=== PATIENT | female | born 1975 | race Caucasian/White ===

== ENCOUNTER 2017-07-10 18:24 | Emergency (ER) | payer MEDICAID ==
[~2017-07-10] VITALS: Ht 157.5 cm; Wt 93.0 kg
[~2017-07-10 18:24] MED LIST: ALBUTEROL-200 PUFFS/ IH; ANTIVERT GENERI25 MG PO; CIPRO 500MG TA500 MG PO; HYDROCHLOROTHIA25 M1 OR; HYDROCHLOROTHIA25 M1 PO; KEFLEX 500MG.500 MG PO; LISINOPRIL-HCTZ 20-2 PO; LISINOPRIL2.5 M1 PO; LOPRESSOR 25MG.25 MG PO; MEDROL 4MG. DOSE4 MG PO; PHENERGAN 25MG.25 M1 PO; PREDNISONE20 MG PO; TAMIFLU75 MG PO; TESSALON PERLE100 MG PO; VICODIN 5/500 T1 TAB PO; ZITHROMAX Z PA250 MG PO
--- OUTSIDE RECORDS SUMMARY | 2017-07-10 18:35 | External Medical Summary Rpt | CCD ---
Author Author STEPHANIE Address Unknown Phone Purpose Continuity of Care Document - through 2016
--- OUTSIDE RECORDS SUMMARY | 2017-07-10 18:35 | External Medical Summary Rpt | CCD ---
Author Author STEPHANIE Address Unknown Phone [email or web address] Purpose Continuity of Care Document - through 2016
--- OUTSIDE RECORDS SUMMARY | 2017-07-10 18:35 | External Medical Summary Rpt | CCD ---
Author Author [employer] Organization [employer] Address Unknown Phone Unavailable Purpose Continuity of Care Document - through 2016
--- OUTSIDE RECORDS SUMMARY | 2017-07-10 18:36 | External Medical Summary Rpt | CCD ---
Demographics Preferred Language Peruvian Marital Status Unknown Episcopalian Affiliation Unknown Race Unknown Ethnic Group Unknown Author Author , STEPHANIE WILEY Address Unknown Phone Immunization No patient found.
--- OUTSIDE RECORDS SUMMARY | 2017-07-10 18:36 | External Medical Summary Rpt ---
Author Author [facility] [place], [employer] Organization [employer] Address Unknown Phone Unavailable
--- OUTSIDE RECORDS SUMMARY | 2017-07-10 18:36 | External Medical Summary Rpt | CCD ---
Demographics Preferred Language Zambian Marital Status Unknown Yazidi Affiliation Unknown Race Unknown Ethnic Group Unknown Author Author , STEPHANIE WILEY Address Unknown Phone Immunization No patient found.
[2017-07-10 19:30] VITALS: BP 178/98
[2017-07-10] MEDS ORDERED: MEDROL 4MG. DOSE4 MG PO (19:30)
[2017-07-10] MEDS ORDERED: ZITHROMAX Z PA250 MG PO (19:30)
[2017-07-10] MEDS ORDERED: TESSALON PERLE100 M1 PO (19:30)
[2017-07-10] MEDS ORDERED: FLONASE 50 MCG16 GM (19:30)
--- NOTE | 2017-07-10 19:30 | Urgent Treatment Center Report ---
History of Present Issue Date/Time Seen by Provider 07/10/171920 Visit Reason Pt arrived:Walked Presenting Problem:PT C/O COUGH, CONGESTION Location if Accident: Onset of symptoms date/time:/ or onset unknown for:MEDICAL HX UNKNOWN Have you (or family members/close friends) recently traveled outside the [place]? N If Yes, where/when: Have you had exposure to infectious disease within the past month? TB? Other? Specify: Patient state that she feels like she has a sinus infection or something, State that she has been having sore throat, cough and congestion State that she has continued to get worse as the day went on State that she went to [facility] and her blood pressure was up and they sent her up here States that she is on blood pressure medication and when she is sick her blood pressure is oftne up ALLERGIES Coded Allergies: [place] Pepper (From PEPPERS (FOOD/DRUG)) (I-RASH, BANANA PEPPERS 03/10/16) Penicillins (S-ANAPHYLAXIS 03/10/16) oxycodone (I-ITCHING 03/10/16) pepper (From PEPPERS (FOOD/DRUG)) (I-RASH, BANANA PEPPERS 03/10/16) Home Medications Reported Medications Metoprolol Tartrate (Lopressor) 25 MG PO BID #60 TAB Lisinopril 2.5 MG PO DAILY #30 HYDROCHLOROTHIAZIDE (Hydrochlorothiazide) 25 MG PO DAILY #30 History Medical History General CAD? No Angina: Yes CA: No Hypertension? Yes Hyperlipidemia? No CHF? No DVT? No PE? No COPD? Yes Asthma? Yes Anemia? No GERD? No Gastric ulcers? No GI Bleed? No Hernia? No Thyroid Problems? No Hypothyroidism? No CVA? Yes Seizures? No Diabetes? No Renal Insuffiency? No UTI? Yes Stones? No BPH? No GB Disease: No Nephritic Syndrome? No Asplenia? No Hepatitis? No Sickle Cell Disease? No Arthritis? No Migraines? No Cataracts? No Glaucoma? No MRSA? No HIV? No TB? No Anxiety? No Depression? No Cancer? Yes Site: CERVIX More? No Immunization HX DT/Tetanus 1-4 YRS Flu NEVER Pneumonia NEVER Surgical Hx Previous Surgery?Y CERVIX-LASER TUBAL LIGATION LT HAND SURGERY-IMPALED LAPROSCOPY D&C Family History Family HX Diabetes Yes CAD Yes Hypertension Yes Hyperlipidemia Yes Cancer Yes TB No Social History Smoking Hx Smoker: Current Every Day Smoker Tobacco: Yes Type Cigarettes Packs/day < 1 Pack Alcohol Alcohol: No Review of Systems All Other Systems Reviewed and Negative Constitutional chills, fever ENT ear pain, nose congestion, throat pain. Respiratory cough Physical Exam Vital Signs Vital Signs Date Time Temp Pulse Resp B/P Pulse O2 O2 Flow FiO2 Ox Delivery Rate 07/10 1835 97.5 91 16 186/111 97 General Appearance normal appearance, WD/WN, no apparent distress Ear, Nose, Throat sinus pain/drainage, nasal congestion, Throat pain, redness and irritated, tenderness noted over maxillary sinuses Respiratory Status Yes: trachea midline, chest symmetrical, non tender chest. No: respiratory distress. Lung Sounds bilateral: normal breath sounds, lungs clear. Cardiovascular normal exam, regular rate/rhythm, no peripheral edema Neurologic alert, normal exam, oriented x 3 Medical Decision Making LABS/Meds/Orders Pt receiving controlled substance in ED? No Departure Departure Time of Disposition 1927 Disposition DC Home or Self Care(routine) Clinical Impression Primary Impression: Upper respiratory infection Qualifiers: URI type: unspecified URI Qualified Code: J06.9 - Acute upper respiratory infection, unspecified Condition STABLE Referrals Mark RAVI,Alphonso (Family): 2 Days-Call Office If symptoms worsen or if blood pressure continues to rise Patient Instructions Cough, Sore Throat Additional Instructions * Monitor Temp. Tylenol and/or Ibuprofen as needed. ER if fever is no less than 101 despite alternating Tylenol and Ibuprofen * Encourage fluids, water, Gatorade, powerade, pedialyte if infant/toddler/or child * Warm salt water gargles for throat irritation *Warm fluids *Sore throat lozenges *Sleep elevated *humidifier or vaporizer Lots of rest Increase fluids, water, Gatorade, powerade *Flonase 2 sprays each nostril daily but may take 2-3 days to notice improvement with it Follow up IMMEDIATELY for new or worsening of symptoms OR no noticeable improvement over the next 48-72 hours. 911 immediately for any life threatening symptoms such as chest pain or difficulty breathing Discharge Counseling Counseled pt/family regarding diagnosis, medications/RX, home care, follow up needs Prescriptions Current Visit Scripts Azithromycin (Zithromycin (Z-CABRERA) 250MG Tab) 250 MG PO DAILY #6 TAB TAKE TWO (2) TABLETS ON DAY 1, THEN ONE (1) TABLET DAY #2 THRU #5 Methylprednisolone (Medrol Dose Cabrera) 4 MG PO UD #1 CABRERA TAKE DIRECTED ON PACKAGING Fluticasone Propionate (Flonase 50 Mcg Nasal [place]) 2 SPRAY NA DAILY #1 BOT Benzonatate (Tessalon Perle) 100 MG PO TID #15 SGL at 1931
== END 2017-07-10 19:32 | disposition home or self-care (01) ==
LOC: ER 18:24 → UTC 18:34 → ER 18:34 → UTC 19:32
DX: J06.9 Acute upper respiratory infection, unspecified (principal); F17.210 Nicotine dependence, cigarettes, uncomplicated; J44.9 Chronic obstructive pulmonary disease, unspecified; Z88.0 Allergy status to penicillin; I10 Essential (primary) hypertension

== ENCOUNTER → 2017-07-24 | Outpatient (CLI) | payer BC, MEDICAID ==
[~2017-07-24] MED LIST changes: +FLONASE 50 MCG16 GM; +TESSALON PERLE100 M1 PO
--- NOTE | 2017-07-26 10:29 | RADIOLOGY REPORT PS360 ---
DIG MAMM-DX ROXY W/AVWS W/CAD, US BREAST-RT COMPLETE W/AXILLA, US BREAST-LT COMPLETE W/AXILLA COMPARISON: 11/19/2012 INDICATION: Palpable abnormality of the right breast ORDERING PHYSICIAN: Carlee Swan APRN PATIENT AGE: 42 years TECHNIQUE: Standard images performed along with spot compression views, mag views, and rolled views along with bilateral breast ultrasound FINDINGS: Right breast: Markers are could on the area of palpable abnormality in the upper inner aspect of the right breast. There is an ill-defined area of asymmetric density involving the medial aspect of the right breast. This may only be related to fibroglandular tissue not readily apparent on the MLO view and not apparent on an additional cc view.. Ultrasound does not reveal any abnormality in this region. This could be related to asymmetric fibroglandular tissue. One cannot exclude development of a rest nodule. This is directly associated with one of the placed markers. There is questionable calcification in the central aspect of the right breast. Spot compression mag views show faint calcification but no suspicious calcification apparent probably benign. Right breast ultrasound: No sonographic abnormalities apparent. Left breast: Asymmetric density is present in the central and deep aspect of the left breast and slightly medial in the central aspect of the left breast. Spot compression view shows anterior probably compress out as fibroglandular tissue. This is not identified in the orthogonal plane. Left breast ultrasound: No sonographic abnormalities apparent. IMPRESSION: Asymmetric density medial aspect of the right breast in the area of reported palpable abnormality. Is probably related to fibroglandular tissue. No sonographic correlate. BI-RADS CATEGORY: 3_Probably Benign-Short Term F/U RECOMMENDED FOLLOWUP: 3 month mammographic follow-up of the right breast. A NEGATIVE MAMMOGRAM AND NEGATIVE ULTRASOUND DOES NOT EXCLUDE POSSIBILITY OF MALIGNANCY. ANY PALPABLE ABNORMALITY SHOULD BE MANAGED ON A CLINICAL BASIS. IF THERE IS INDEED A PALPABLE ABNORMALITY THEN IT SHOULD BE MANAGED ON A CLINICAL BASIS. (A letter has been sent to the patient regarding results of the study.)
== END ==
LOC: RAD 14:16
DX: N63.10 Unspecified lump in the right breast, unspecified quadrant (principal); N63.20 Unspecified lump in the left breast, unspecified quadrant
CPT/HCPCS: G0204